=== PATIENT | female | born 1965 | race Caucasian/White ===

== ENCOUNTER 2016-06-11 02:16 | Emergency (ER) | payer SELFPAY ==
[2016-06-11 02:36] VITALS: TEMP 98.6; BMI 29.9
--- NOTE | 2016-06-11 02:42 | EDPRACDOC ---
- General Information Chief Complaint: Anxiety Illness Stated Complaint: RT SIDE PAIN Time Seen by Provider: 06/11/16 02:25 Information Source: Patient Mode of Arrival: Car Home Medications: Home Medications Albuterol Sulfate [Proair Hfa] 2 puff INH Q6H PRN 10/16/14 Fluoxetine HCl [Prozac] 40 mg PO DAILY 10/16/14 Trazodone HCl 100 mg PO QHS 10/16/14 Cyanocobalamin (Vitamin B-12) [B-12] 500 mcg PO DAILY 03/14/16 Cyclobenzaprine HCl [Flexeril] 10 mg PO TID PRN #20 tablet 03/14/16 Gabapentin [Neurontin] 300 mg PO DAILY 03/14/16 Ketoprofen 50 mg PO BID PRN #20 capsule 03/14/16 Clonazepam [Klonopin] 1 mg PO TID PRN #10 tablet 06/11/16 Metoprolol Tartrate [Lopressor] 25 mg PO BID #30 tablet 06/11/16 Allergies/Adverse Reactions: Allergies Allergy/AdvReac Type Severity Reaction Status Date / Time acetaminophen [From Tylenol] Allergy Nausea only Verified 03/14/16 11:46 - History of Present Illness Onset: [employer] HPI: PT CAME TO ED BECAUSE HER IS ADMITTED INPATIENT, HER NERVES ARE ALL TORN UP, PT TEARFUL. ALSO HAS BACK PAIN, CHRONIC 03/16, WORSE DUE TO SOBBING. MILD RIGHT LOWER QUAD PAIN FOR SEVERAL DAYS, H/O APPY. PT HAS BEEN TOLD AT [facility] THAT SHE HAS HIGH BLOOD PRESSURE, DOES NOT TAKE MEDS. ED Past Medical History - History Reviewed Yes Nurses notes reviewed and agree except as marked - Patient Medical History Cardiac History: Reports: Hypertension (chronic; doesn't take medication) Respiratory History: Reports: Asthma Psychological History: Reports: Depression, Anxiety - Social Medical History Smoking Status: Heavy tobacco smoker (5 or more cigarettes/day or daily pipe/ cigar) EDM Review of Systems - Review of Systems ROS Negative Except as Marked: Yes All systems reviewed and were negative except as marked Constitutional: No Symptoms Reported Throat: No Symptoms Reported Respiratory: No Symptoms Reported Cardiovascular: No Symptoms Reported Genitourinary: No Symptoms Reported - Physical Exam Constitutional: Alert (Awake), No apparent distress Oriented to: Time, Person, Place Last recorded Vital Signs: Last Vital Signs Temp 98.6 F 06/11/16 02:33 Pulse 79 06/11/16 02:33 Resp 20 06/11/16 02:33 BP 199/104 H 06/11/16 02:33 Pulse Ox 100 06/11/16 02:33 Oxygen Pulse Oxygen Saturation 100 O2 Device Room Air Oxygen Flow Rate Fraction of Inspired Oxygen ( FIO2) - HEENT Head: Normal ( normocephalic) Eye Exam: Normal (PERRL, EOMI, Sclera white) Oropharynx: Normal (Pharynx:Moist without exudate,Gums-no swelling) Nose: No Symptoms Reported (septum midline) Neck: Normal (FROM, trachea at midline) - Respiratory/Cardiovascular Respiratory: Normal - CTA (BBS clear to auscultation without adventitious sounds ) Cardiovascular: Normal (RRR without murmur, gallop or rub) - GI Auscultation: Normal (NABS) Palpation: Normal (Soft,No rebound or guarding, non distended) Tenderness: Mild, RLQ. negative: Guarding, Rebound, Rigidity Wang's Sign: Negative - Musculoskeletal Back: Normal (Non-Tender) Extremities: Normal (Normal tone, Pulses 2+ No cyanosis or edema, FROM) - Integumentary Skin: Normal, Warm, Dry Lymphatics: Normal (no adenopathy) - Neurologic Memory Impaired: Normal Motor Function: Normal (Normal tone, Pulses 2+ No cyanosis or edema, FROM) Cranial Nerve: Normal (CN II-X11 intact sensation, strength 5/5) Cerebellar: Normal Mood Description: Other (TEARFUL) Perception: Normal - Departure Yes I personally saw and evaluated the patient. Disposition: Home Condition: Stable Final Diagnosis: Anxiety Hypertension Qualifiers: Hypertension type: essential hypertension Qualified Code(s): I10 - Essential ( primary) hypertension Instructions: Chronic Hypertension (ED) Education/Counseling Given To: Patient Education/Counseling Given Regarding: Diagnosis, Treatment Referrals: David Aguilar MD [Primary Care Provider] - One Week Mireille Mijares MD [Staff Physician] - One Week Prescriptions: Clonazepam [Klonopin] 1 mg PO TID PRN #10 tablet PRN Reason: Anxiety Metoprolol Tartrate [Lopressor] 25 mg PO BID #30 tablet
[2016-06-11] MEDS ORDERED: LORAZEPAM 1 MG TAB PO ONE (02:46)
[2016-06-11] MEDS ORDERED: METOPROLOL TARTRATE 25 MG TAB PO ONE (02:46)
[2016-06-11 03:32] VITALS: BP 155/88; PULSE 71
== END 2016-06-11 03:23 | disposition home or self-care (01) ==
LOC: ED 02:16
DX: I10 Essential (primary) hypertension (principal); F41.9 Anxiety disorder, unspecified
CPT/HCPCS: 99283; J3490